=== PATIENT | female | born 1970 | race African-American/Black ===

== ENCOUNTER 2017-01-24 14:41 | Emergency (ER) | payer SELFPAY ==
[~2017-01-24] VITALS: Ht 167.6 cm; Wt 54.4 kg
[2017-01-24 14:45] VITALS: BP 126/81
== END 2017-01-24 15:39 | disposition home or self-care (01) ==
LOC: ER 14:43
DX: L03.012 Cellulitis of left finger (principal)
CPT/HCPCS: 10060; 99283; A4606; Z7610